=== PATIENT | female | born 1980 | race Caucasian/White ===

== ENCOUNTER 2017-11-16 13:41 | Emergency (ER) | payer OTHER ==
[2017-11-16 13:56] VITALS: BP 121/59; PULSE 96; RESP 18; TEMP 98.1
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
== END 2017-11-16 14:41 | disposition home or self-care (01) ==
LOC: EC 13:41
DX: M77.9 Enthesopathy, unspecified (principal); F17.200 Nicotine dependence, unspecified, uncomplicated; Z86.14 Personal history of Methicillin resistant Staphylococcus aureus infection; Z88.1 Allergy status to other antibiotic agents; Z88.2 Allergy status to sulfonamides
CPT/HCPCS: 99283